=== PATIENT | male | born 1950 | race Caucasian/White ===

== ENCOUNTER 2017-04-21 08:06 | Emergency (ER) | payer MEDICARE, MEDICAID ==
[2017-04-21] MEDS ORDERED: NORMAL SALINE 1,000 ML IV ONE (08:30)
--- OUTSIDE RECORDS SUMMARY | 2017-04-21 08:41 | XMS REPORT | Continuity of Care Document ---
:1950 Author Organization [facility] ([facility]) Address [place] [address] Phone [phone] Care Team Providers Name Role Phone KatelinluzmaWilliams Primary Care Provider [phone] Source Comments This disclosure is being made pursuant to the Care Everywhere program, applicable federal and state laws, and may not contain all informaitonavailable regarding this patient.[facility] ([facility]) Active Allergies and Adverse Reactions Allergen Noted Date Severity Reactions Comments No Known Allergies 10/12/2009 NO REACTION Current Medications Prescription Sig. Disp. Refills Start End Date Status Date albuterol (PROAIR HFA) Use 2 Puffs by 1 Inhaler Active 90 mcg/Actuation inhalation every 6 4 inhaler hours as needed. Indications: CHRONIC OBSTRUCTIVE PULMONARY DISEASE FUROSEMIDE 20 mg tablet 20 mg daily. Active 4 COMBIVENT RESPIMAT 2 Puffs. 3-4 times Active 20-100 mcg/actuation per day 4 inhaler tiotropium (SPIRIVA) 18 Use 1 Cap by 30 Cap Active mcg inhalation capsule inhalation daily. 4 Indications: PULMONARY EMPHYSEMA lisinopril 5 mg tablet Take 5 mg by mouth Active daily. nadolol 40 mg tablet Take 40 mg by mouth Active daily. hydrochlorothiazide 25 Take 25 mg by mouth Active mg tablet daily. atorvastatin 40 mg Take 1 Tab by mouth 30 Tab 0 Active tablet every evening. 4 Indications: ARTERIOSCLEROTIC VASCULAR DISEASE pantoprazole 40 mg EC Take 1 Tab by mouth 60 Tab 0 Active tablet 2 times daily. 4 Indications: DUODENAL ULCER metoPROLol succinate 50 TK 1 T PO QD 11 Active mg XL tablet 7 lisinopril-hydrochlorot TK 1 T PO QD 5 Active hiazide 10-12.5 mg per 7 tablet gabapentin 400 mg Take 400 mg by mouth Active capsule 3 times daily. Active Problems Patient Care Coordination Note GOALS OF CARE AND TREATMENT PREFERENCES Patients Communication Style/Preference per patient: open/direct/ straightforward Diagnosis: #1 suprarenal abdominal aortic aneurysm #2 severe coronary artery disease #3 severe COPD #4 recent lower GI bleed, etiology unclear Prognosis: Months to years Goal(s) of Care: comfort and relief of symptoms, live longer and maintenance/ quality of life/independence Is the patient an inpatient? Yes. How did the team arrive at the current code status? Conversation with patient and family Additional remarks: Unwilling to have surgical intervention of any kind, prefers to enroll in hospice ,IPOST document prepared Patient able to make own decisions?: Yes Patient's communication style and Goals of Care were communicated to attending staff. 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 Abdominal aneurysm without mention of rupture 08/21/2008 Coronary atherosclerosis of unspecified type of vessel, chehalis or graft 2007 Most Recent Encounters Date Type Specialty Providers Description 05/30/2017 [facility] General Surgery Luzma Hoyt Encounter MD Jake 03/11/2017 Office Visit [facility] Luzma Hoyt Dx: Thoracoabdominal MD Jake aortic aneurysm, without rupture (Primary Dx) 03/11/2017 [facility] Radiology Donna Price Dx: Pre-procedure lab Encounter MD Pablo exam (Primary Dx) Immunizations Name Dates Previously Given Next Due Influenza, quadrivalent PF 09/30/2014 Pneumococcal, unspecified 11/11/1995 Social History Tobacco Use Types Packs/Day Years Used Date Heavy Tobacco Smoker Cigarettes, Cigars 1 48 Smokeless Tobacco: Never Used Tobacco Cessation:Ready to Quit: Yes; Counseling Given: Yes Comments: Alcohol Use Drinks/Week oz/Week Comments No Last Filed Vital Signs Vital Sign Reading Time Taken Blood Pressure 113/78 03/11/2017 9:53 AM CDT Pulse 75 03/11/2017 9:53 AM CDT Temperature 36.6 C (97.9 F) 03/11/2017 9:51 AM CDT Respiratory Rate 12 10/06/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 Height 1.727 m (5' 8") 03/11/2017 10:00 AM CDT Weight 63.2 kg (139 lb 5.3 oz) 03/11/2017 10:00 AM CDT Body Mass Index 21.19 03/11/2017 10:00 AM CDT Oxygen Saturation 93% 12/01/2015 10:34 AM 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 Plan of Care Date Type Specialty Providers Description 05/30/2017 Surgery General Surgery Luzma Hoyt MD 4 vessels FEVAR SURGEON [address] [place] [address] [phone] (Fax) Health Maintenance Due Date Last Done Comments HCV Screening 1950 Hepatitis B Vaccine (1 of 3 - Primary Series) 1950 Tdap Vaccine 1963 Td Vaccine 1970 Pneumococcal Vaccine (1 of 1 - PPSV23) 1971 Colonoscopy 2002 Prostate Cancer Screening 2002 Zoster Vaccine 2012 Lipid Disorder Screening 08/24/2013 08/24/2008 Influenza Vaccine: Seasonal (Season Ended) 2017 09/30/2014 Results from Last [address] ANGIO CHEST, ABDOMEN& PELVIS W/WO ([id number], [id number]) (03/11/2017 9:19 AM) Impressions Impression: 1. The ascending aorta and aortic arch are unremarkable 2. There is fusiform dilatation of the descending thoracic aorta to 4.8 x 4.5 cm with irregular mural thrombus throughout. 3. Infrarenal abdominal aortic aneurysm has increased to 6.6 x 7.5 cm from 5.3 x 6.2 cm. 4. The residual lumen of the infrarenal aorta has increased to 23 x 36 mm from 16 x 23 mm 5. The remainder of the vasculature is stable. 6. Centrilobular emphysema 7. Thickened bustos, consistent with inflammatory airway disease/bronchitis such as from cigarette smoking. 8. The right lower lobe nodule is stable since prior chest CT of 07/06/2013. Given the stability and location this is most consistent with intraparenchymal lymph node. However, given patient's age and smoking history, recommend consideration of annual low-dose lung cancer screening CT. Narrative Procedure: CT ANGIO CHEST, ABDOMEN & PELVIS W/WO ([id number], [id number]) Clinical Indication: Follow-up abdominal aortic aneurysm Technique: Chest/abdomen/pelvic CT angiogram. 2D and 3D images were obtained. Due to the high capacitance of the aneurysm, noncontrast, early arterial and delayed imaging was obtained. Comparison: Abdominal pelvic CT angiogram dated 10/05/2014 Findings: Aorta/vascular: Aortic root and ascending aorta unremarkable with the adjacent aorta measures maximum 3.4 x 3.4 cm in cross-sectional diameter. Moderate assess chronic calcifications are present in the aortic arch however the great vessels arising from aortic arch are patent and without stenosis. There is an independent origin of the left vertebral from the aortic arch. There is fusiform dilatation of the descending aorta to maximum 4.8 x 4.5 cm with a residual lumen of 4.1 x 4.0 cm (image [id number]). There is irregular mural thrombus throughout the descending aorta. At the diaphragmatic hiatus the aorta measures 3.4 cm in diameter. There is fusiform dilatation of the suprarenal abdominal aorta to 6.6 x 7.5 cm (image [id number]) compared with 5.3 x 6.2 cm previously (image [id number] 10/05/2014). Residual lumen at this level has increased to 23 x 36 mm from 16 x 23 mm. High attenuation material within the thrombus is seen on the noncontrast studies represent intramural calcifications. The branch vessels arising from the abdominal aorta are stable and patent. The bilateral iliac and proximal femoral systems are likewise stable with occlusion of the superficial femorals bilaterally. Chest: Moderate confluence centrilobular emphysema is present. There is diffuse thickening of the bronchial bustos. A 4 x 7 mm smoothly marginated noncalcified soft tissue nodules present in the anterior basal segment right lower lobe adjacent to the major fissure (image [id number]). Abd: Benign-appearing renal cysts are stable. Pelvis: Moderate prostate enlargement is stable. Procedure Note Gregory, Incoming Imaging Results - SatMarch 11, 2017 9:47 AM CDT Procedure: CT ANGIO CHEST, ABDOMEN & PELVIS W/WO ([id number], [id number]) Clinical Indication: Follow-up abdominal aortic aneurysm Technique: Chest/abdomen/pelvic CT angiogram. 2D and 3D images were obtained. Due to the high capacitance of the aneurysm, noncontrast, early arterial and delayed imaging was obtained. Comparison: Abdominal pelvic CT angiogram dated 10/05/2014 Findings: Aorta/vascular: Aortic root and ascending aorta unremarkable with the adjacent aorta measures maximum 3.4 x 3.4 cm in cross-sectional diameter. Moderate assess chronic calcifications are present in the aortic arch however the great vessels arising from aortic arch are patent and without stenosis. There is an independent origin of the left vertebral from the aortic arch. There is fusiform dilatation of the descending aorta to maximum 4.8 x 4.5 cm with a residual lumen of 4.1 x 4.0 cm (image [id number]). There is irregular mural thrombus throughout the descending aorta. At the diaphragmatic hiatus the aorta measures 3.4 cm in diameter. There is fusiform dilatation of the suprarenal abdominal aorta to 6.6 x 7.5 cm (image [id number]) compared with 5.3 x 6.2 cm previously (image [id number] 10/05/2014). Residual lumen at this level has increased to 23 x 36 mm from 16 x 23 mm. High attenuation material within the thrombus is seen on the noncontrast studies represent intramural calcifications. The branch vessels arising from the abdominal aorta are stable and patent. The bilateral iliac and proximal femoral systems are likewise stable with occlusion of the superficial femorals bilaterally. Chest: Moderate confluence centrilobular emphysema is present. There is diffuse thickening of the bronchial bustos. A 4 x 7 mm smoothly marginated noncalcified soft tissue nodules present in the anterior basal segment right lower lobe adjacent to the major fissure (image [id number]). Abd: Benign-appearing renal cysts are stable. Pelvis: Moderate prostate enlargement is stable. IMPRESSION Impression: 1. The ascending aorta and aortic arch are unremarkable 2. There is fusiform dilatation of the descending thoracic aorta to 4.8 x 4.5 cm with irregular mural thrombus throughout. 3. Infrarenal abdominal aortic aneurysm has increased to 6.6 x 7.5 cm from 5.3 x 6.2 cm. 4. The residual lumen of the infrarenal aorta has increased to 23 x 36 mm from 16 x 23 mm 5. The remainder of the vasculature is stable. 6. Centrilobular emphysema 7. Thickened bustos, consistent with inflammatory airway disease/bronchitis such as from cigarette smoking. 8. The right lower lobe nodule is stable since prior chest CT of 07/06/2013. Given the stability and location this is most consistent with intraparenchymal lymph node. However, given patient's age and smoking history, recommend consideration of annual low-dose lung cancer screening CT. CREATININE, POINT OF CARE (03/11/2017 8:46 AM) Component Value Range POC CREATININE 0.9 0.6-1.2 mg/dL POC CALCULATED GFR >60 60 mL/min/1.73 m2 Specimen Blood
[2017-04-21 08:53] LABS: Hematocrit 49.5 % (42.0-52.0); Hemoglobin 17.9 gm/dL (13.5-18.0); Mean Cell Volume 90.2 fl (78-100); Mean Corpuscular Hemoglobin 32.6 pg (27-31); Mean Corpuscular Hgb Conc 36.2 g/dl (32-36); Mean Platelet Volume 9.5 fl (6.0-9.5); Neutrophil # 11.6 K/mm3 (1.3-6.0); Neutrophil % 87.3 % (42-75.0); Platelet Count 136 K/mm3 (150-450); Red Blood Count 5.49 M/mm3 (4.7-6.0); Red Cell Distribution Width 14.1 % (11.5-14.0); White Blood Count 13.3 K/mm3 (4.0-10.5)
[2017-04-21 09:01] LABS: Prothrombin Time (Patient) 11.8 Seconds (9.4-11.4)
[2017-04-21 09:06] LABS: INR 1.13 INR (0.90-1.10)
[2017-04-21 09:10] LABS: Albumin * 4.1 gm/dl (3.4-5.0); Anion Gap 16.2 mmol/L (6.8-13.8); Bilirubin, Total 1.1 mg/dL (0.0-1.1); Ca. Corrected For Albumin 9.9 mg/dL (8.4-10.2); Calcium * 10.3 mg/dL (7.9-10.9); Carbon Dioxide 28.1 mmol/L (24-32.6); Potassium 3.3 mmol/L (3.4-4.6); Total Protein 8.6 gm/dL (6.2-8.2)
[2017-04-21 09:11] LABS: Troponin I 0.018 ng/ml (0.00-0.10)
[2017-04-21] MEDS ORDERED: MORPHINE SULFATE 4 MG/ML SYRG IV ONE (09:14)
[2017-04-21] MEDS ORDERED: MORPHINE SULFATE 4 MG/ML SYRG ONE (09:17)
[2017-04-21 09:24] LABS: Urine Bilirubin Negative (NEGATIVE); Urine Blood 25 /ul (NEGATIVE); Urine Ketone Negative (NEGATIVE); Urine Nitrite Negative (NEGATIVE); Urine Protein Negative (NEGATIVE); Urine Urobilinogen Normal (NORMAL)
[2017-04-21 09:33] LABS: Urine Appearance Cloudy; Urine Color Yellow
[2017-04-21 09:36] LABS: Urine Bacteria 3+
[2017-04-21] MEDS ORDERED: NORMAL SALINE IV PRN ×2 (10:52→11:30)
[2017-04-21] MEDS ORDERED: ESMOLOL HCL IV PRN ×2 (10:52→11:30)
--- NOTE | 2017-04-21 11:26 | ERNOTE ---
Abdominal HPI - Narrative Date of Service: 04/21/17 - General Chief Complaint: Abdominal Pain Time Seen by Provider: 04/21/17 08:26 Source: patient Exam Limitations: no limitations - Immun/Allergies/Home Medications Immunizatons: IMMUNIZATION HX Immunizations Up to Date Yes History of Influenza Vaccine No Allergies/Adverse Reactions: Allergies No Known Allergies Allergy (Verified 04/21/17 08:23) - History of Present Illness Narrative: patient presents to the ED with increasing abdominal pain for the last 4 days. He has a known AAA and is seen at the [facility] for this. He was on his way up there today but the pain was too bad so he was brought here. Pain severe in abdomen. has never been seen here and no old records are available at this time. Hasn't been able to eat for the lasty couple of days. pain radiates into his back. Decreased urine output. Timing: constant Quality: severe Activities at Onset: none Modifying Factors - (Improves): Present: other - nothing Modifying Factors - (Worsens): Present: movement Associated Symptoms: Present: back pain, swelling/mass in abdomen. Absent: fever/chills, shortness of breath Prior Treatment: Present: recently seen Review of Systems - Review of Systems Constitutional: Absent: fever Respiratory: Present: shortness of breath Cardiology: Absent: chest pain Gastrointestinal/Abdominal: Present: abdominal pain Genitourinary: Present: decreased urinary output Musculoskeletal: Present: back pain All Other Systems: All systems neg except as marked - Patient's Past Medical History Patient History - Medical: Arthritis, Chronic Pain, Diabetes Type 2 Patient History - Cardiac/Respiratory: Coronary Heart Disease, Hypertension, Myocardial Infarction Patient History - Cancer: No Hx of Cancer Patient History - Surgical Procedures: Angioplasty, Pacemaker Patient History - Other: None - Social History Living Situations: alone Abuse History: No History of abuse Psych History: No pertinent hx - Immunizations Immunizations Up to Date: Yes History of Influenza Vaccine: No Physical Exam - Physical Exam General Appearance: Present: alert, no apparent distress Eye Exam: Normal inspection: bilateral, PERRL: bilateral Ears, Nose, Throat: Present: normal ENT inspection Neck: Present: normal inspection Respiratory: Present: no respiratory distress, other - scattrered wheezes throughout Cardiovascular/Chest: Present: regular rate, rhythm, other - bilateral femoral pulses noted. Gastrointestinal/Abdominal: Present: other - Firmness and mass low abdomen. Diffuse tendenress but no peritoneal signs. Back Exam: Absent: CVA tenderness (R), CVA tenderness (L) Neurological Exam: Present: other - no acute focal weakness Skin Exam: Absent: skin rash ED Progress - Results and Orders Patient's Lab Results:: I have reviewed the patient's lab results. - Vital Signs Patient's Vital Signs:: I have reviewed the patient's vital signs. Vital Signs: Vital Signs 04/21/17 04/21/17 04/21/17 08:07 08:40 09:14 Temperature 37 C 37 C Pulse Rate 96 59 L 76 Respiratory 14 17 12 Rate Blood Pressure 152/93 147/80 162/102 O2 Sat by Pulse 95 92 93 Oximetry 04/21/17 11:08 Temperature 36.9 C Pulse Rate 65 Respiratory 21 H Rate Blood Pressure 137/98 O2 Sat by Pulse 92 Oximetry - EKG EKG read: Interp. by me EKG Comments: NSR. Non-specific ST/T wave changes, no clear evidence of STEMI. - CT/Ultrasound CT/Ultrasound Narrative: Dr Devries called me with CT verbal report. - Progress/Reassessment Chief Complaint: Abdominal Pain Progress Note-Subjective: 04/21/17 11:23 Patient had urinary retention resolved with Jean-Baptiste, this resolved many of his Sx but his CT is very concerning according to Dr Devries. I spoke with [facility] and emergent transfer was requested, given this will utilize air ambulance. Dr Kennedy accepting. Dr Kennedy recommends IV esmoilol drip which has been ordered. Emergent transfer although his Sx seem much improved. Dr Devries felt the findings could represent impending rupture. Departure - Departure Clinical Impression: Abdominal pain, Abdominal aneurysm, Urinary retention Disposition: [facility] Condition: Serious
[2017-04-21] MEDS ORDERED: ESMOLOL HCL 10 MG/ML VIAL IV ONE (11:30)
[2017-04-21 11:37] VITALS: BP 151/91
== END 2017-04-21 11:35 | disposition short-term general hospital (02) ==
LOC: ER 08:06
PROC: 0T9B70Z Drainage of Bladder with Drainage Device, Via Natural or Artificial Opening (ICD-10-PCS; principal; 2017-04-21)
DX: I71.4 Abdominal aortic aneurysm, without rupture (principal); R33.9 Retention of urine, unspecified; R10.9 Unspecified abdominal pain; I10 Essential (primary) hypertension; I50.9 Heart failure, unspecified; Z95.0 Presence of cardiac pacemaker; G89.29 Other chronic pain